=== PATIENT | male | born 2005 | race Two or more races ===

== ENCOUNTER 2025-03-04 18:20 | Emergency (ER) | payer MEDICAID, OTHER ==
[~2025-03-04] VITALS: Ht 160 cm; Wt 66.0 kg
[2025-03-04] MEDS ORDERED: IBUP-1456 PO (20:40)
--- NOTE | 2025-03-04 20:41 | ED.PDOC ---
Eye-HPI HPI Comments 19-YEAR-OLD MALE PRESENTS TO THE ED CHIEF COMPLAINT REPORTS RIGHT PAIN SINCE 1500 TODAY AFTER WELDING WITH HIS DAD TODAY. STATES RIGHT EYE BURNING TYPE PAIN 10/10 ON PAIN SCALE. STATES SYMPTOMS STARTED PROXIMALLY 6 HOURS AFTER THE FLASH. SOME BLURRY VISION DIFFICULTY OPENING EYE DUE TO THE PAIN. REPORTS WAS NOT WEARING FLASH EYE PROTECTION. DENIES FOREIGN BODY FEELING, ANY ARC FLYING INTO HIS EYE, FEVERS, CHILLS, NAUSEA OR VOMITING Chief Complaint: Eye Problem Time Seen by MD: 18:34 Reviewed Notes: Nurses Notes, Medications, Allergies Allergies: Coded Allergies: NO KNOWN ALLERGIES (Unverified , 03/04/25) Information Source: Patient Mode of Arrival: Ambulatory Past Medical History PAST MEDICAL HISTORY: Denies Surgical History: Denies all surgeries Family History Family History: Reviewed,noncontributory to illness, No family hx of Cancer, No family hx of DM, No family hx of Heart nu, No family hx of HTN, No family hx ofKidney nu, No family hx of Liver nu, No family hx of Lung nu, No family hx of Stroke Social History Smoker: Non-Smoker Alcohol: Denies ETOH Use Drugs: Denies Drug Use All Other Systems: Reviewed and Negative (SEE HPI) Physical Exam General Appearance: No Apparent Distress, Normal HEENT: Pharynx Normal, TMs Normal, Other (RIGHT EYE SCLERAL HYPEREMIA CLEAR FLUID DRAINAGE NO NOTED OBVIOUS FOREIGN BODY) Neck: Full Range of Motion, Non-Tender, Normal, Normal Inspection Respiratory: Chest Non-Tender, Lungs Clear, No Accessory Muscle Use, No Respiratory Distress, Normal Breath Sounds Cardiovascular: No Edema, No JVD, No Murmur, No Gallop, Normal Peripheral Pulses, Regular Rate/Rhythm Breast Exam: Deferred Gastrointestinal: No Organomegaly, Non Tender, No Pulsatile Mass, Normal Bowel Sounds, Soft Genitalia: Deferred Pelvic: Deferred Rectal: Deferred Extremities: No calf tenderness, Normal capillary refill, Normal inspection, Normal range of motion, Non-tender, No pedal edema Musculoskeletal : Apperance: Normal Neurologic: Alert, 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 PATIENT NORCO 5 MG P.O. TORADOL 60 MG IM REPORTS IMPROVEMENT IN PAIN REQUESTING DISCHARGE AT THIS TIME. SCRIPT TRIAL OF IBUPROFEN. ADVISED TAKE MEDICATIONS PRESCRIBED SIDE EFFECTS DISCUSSED. HE IS TO FOLLOW UP WITH OPHTHALMOLOGY TWO DAYS IF SYMPTOMS PERSIST ADVISED ON ER RETURN PRECAUTIONS PATIENT INDICATES UNDERSTANDING AND AGREES WITH DISCHARGE PLAN OF CARE. Time of 1ST Reevaluation: 18:40 Reevaluation 1ST: Unchanged Time of 2ND Reevaluation: 20:40 Reevaluation 2ND: Improved Patient Education/Counseling: Diagnosis, Treatment, Prognosis, Need For Follow Up Family Education/Counseling: Diagnosis, Treatment, Prognosis, Need For Follow Up SEPSIS Sepsis Screen Date sepsis recognized/suspect: Mar 04, 2025 Time Sepsis recognized/suspect: 1822 Recent Procedure: No On Antibiotic Therapy: No Respiratory Rate >20: No Heart Rate >90: No Temp<36 C (96.8 F) or >38.3 C: No SBP <90 or MAP <65 mmHG: No New Acute Mental Status Change: No Is the patient on CPAP, BIPAP,: No Vital Signs Date Time Temp Pulse Resp B/P (MAP) Pulse Ox O2 Delivery O2 Flow Rate FiO2 03/04/25 18:21 97.8 66 16 129/68 97 97.8 Departure 1 Departure Time of Disposition: 20:40 Impression: 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
[2025-03-04 20:42] VITALS: BP 108/56; PULSE 68; RESP 17; TEMP 98.8; O2SAT 96
[2025-03-04] MEDS: KETOROLAC TROMETH 60MG/2ML VIAL IM ONE (20:42)
[2025-03-04] MEDS: HYDROcodone-ACET 5/325MG TAB PO ONE (20:42)
== END 2025-03-04 21:06 | disposition home or self-care (01) ==
LOC: ER 18:20
DX: H16.139 Photokeratitis, unspecified eye (principal); Z79.899 Other long term (current) drug therapy
CPT/HCPCS: 96372; 99283; J1885